=== PATIENT | female | born 1930 | race Caucasian/White ===

== ENCOUNTER → 2019-01-04 | Outpatient (CLI) | payer MEDICARE ==
[2015-12-17 09:21] VITALS: BP 154/62
[~2019-01-04] MED LIST: ALPR0.254 PO; FELO5TAB PO; HYDR-2765 PO
--- NOTE | 2019-01-04 15:07 | CARD ---
MR#: [id number] Date of Study: 01/04/2019 Ordering Physician: MAIKOL SANDERS, Referring Physician: MAIKOL SANDERS Tech: Joan Sterling RDCS APPROVED REPORT EXAM: Two-dimensional and M-mode echocardiogram with Doppler and color Doppler. Other Information Quality : Fair INDICATION Hypertension/HCVD 2D DIMENSIONS RVDd1.4 (2.9-3.5cm)Left Atrium(2D)3.7 (1.6-4.0cm) IVSd0.7 (0.7-1.1cm)Aortic Root(2D)2.6 (2.0-3.7cm) LVDd5.2 (3.9-5.9cm)LVOT Diameter2.0 (1.8-2.4cm) PWd0.7 (0.7-1.1cm)LVDs2.7 (2.5-4.0cm) FS (%) 47.2 %SV100.5 ml LVEF(%)60.0 (>50%) Aortic Valve AoV Peak Yobany.110.6cm/sAoV VTI24.1cm AO Peak GR.4.9mmHgLVOT Peak Yobany.93.8cm/s LVOT VTI 20.15cmAO Mean GR.3mmHg BOB (VMAX)2.46tw1HJQ (VTI)2.58cm2 Mitral Valve MV E Mnenopkb08.5cm/sMV DECEL [id number] MV A Enawwkto54.4cm/sMV QTQ22ya E/A Ratio0.7MVA (PHT)3.48cm2 TDI E/Lateral E'9.6E/Medial E'13.6 Tricuspid Valve TR P. Yqvahlbf056fc/sRAP DHUUAVGU9peUp TR Peak Gr.63caQqCNEU34nuAs Pulmonary Vein S1 Iczizgjk48.0cm/sD2 Cncylayd82.0cm/s LEFT VENTRICLE The left ventricle is normal size. There is normal left ventricular wall thickness. The left ventricu lar systolic function is normal. The Ejection Fraction is 55-60%. There is normal LV segmental wall m otion. Transmitral Doppler flow pattern is Grade I-abnormal relaxation pattern. RIGHT VENTRICLE The right ventricle is normal size. The right ventricular systolic function is normal. ATRIA The left atrium size is normal. The right atrium size is normal. The interatrial septum is intact wit h no evidence for an atrial septal defect or patent foramen ovale as noted on 2-D or Doppler imaging. AORTIC VALVE The aortic valve is mildly thickened but opens well. Doppler and Color Flow revealed trace to mild ao rtic regurgitation. There is no significant aortic valvular stenosis. MITRAL VALVE The mitral valve is calcified but opens well. Mitral annular calcification is mild. There is no evide nce of mitral valve prolapse. There is no mitral valve stenosis. Doppler and Color-flow revealed mild mitral regurgitation. TRICUSPID VALVE The tricuspid valve is normal in structure and function. Doppler and Color Flow revealed mild tricusp id regurgitation. There is mild pulmonary hypertension. The PA pressure was estimated at 31 mmHg. The re is no tricuspid valve stenosis. PULMONIC VALVE The pulmonic valve is not well visualized. Doppler and Color Flow revealed trace pulmonic valvular re gurgitation. There is no pulmonic valvular stenosis. GREAT VESSELS The aortic root is normal in size. The ascending aorta is normal in size. The IVC is normal in size a nd collapses >50% with inspiration. PERICARDIAL EFFUSION There is no evidence of significant pericardial effusion. Critical Notification Critical Value: No <Conclusion> The left ventricular systolic function is normal. The Ejection Fraction is 55-60%. There is normal LV segmental wall motion. Transmitral Doppler flow pattern is Grade I-abnormal relaxation pattern. Mild mitral regurgitation. Mild tricuspid regurgitation. The PA pressure was estimated at 31 mmHg. There is no evidence of significant pericardial effusion. Signed by : Maikol Sanders, Electronically Approved : 01/04/2019 15:07:22
== END | disposition home or self-care (01) ==
LOC: ECHO 12:47
PROVIDERS: ATTEND Internal Medicine Cardiovascular Disease
DX: I08.3 Combined rheumatic disorders of mitral, aortic and tricuspid valves (principal); I27.20 Pulmonary hypertension, unspecified; I10 Essential (primary) hypertension
CPT/HCPCS: 93306

== ENCOUNTER → 2019-01-05 | Outpatient (CLI) | payer MEDICARE ==
[2015-12-17 09:21] VITALS: BP 154/62
--- NOTE | 2019-01-09 10:11 | RAD ---
MR#: [id number] Date of Study: 01/05/2019 Ordering Physician: MAIKOL SANDERS, Referring Physician: MAIKOL SANDERS, Tech: Burak Sanchez MBA, RDMS, RVT, RDCS, RTR APPROVED REPORT Patient Location : OUT-PATIENT Indications Lower Extremity Edema : Bilateral Findings The right great saphenous vein measures 6.7 mm the left great saphenous vein measures 7.3 mm. The juana ateral greater saphenous veins do not show any evidence of reflux. The bilateral lesser saphenous veins do not show any evidence of reflux. Critical Notification Critical Value: No <Conclusion> Negative for reflux in the bilateral greater and lesser saphenous veins. Signed by : Carlos Caraballo, Electronically Approved : 01/09/2019 10:11:11
== END | disposition home or self-care (01) ==
LOC: US 13:03
PROVIDERS: ATTEND Internal Medicine Cardiovascular Disease
DX: R60.0 Localized edema (principal)
CPT/HCPCS: 93970

== ENCOUNTER → 2019-03-27 | Outpatient (CLI) | payer MEDICARE ==
[2015-12-17 09:21] VITALS: BP 154/62
[~2019-03-27] MED LIST changes: -FELO5TAB PO; +FELO5TAB4 PO
--- NOTE | 2019-03-27 11:21 | RAD ---
EXAM: Bilateral renal sonogram. HISTORY: Inguinal lumps. TECHNIQUE: Sonographic imaging of the inguinal regions was performed. COMPARISON: None. FINDINGS: There is an enlarged left inguinal lymph node measuring 4.8 cm in long axis. There is a 1.7 cm right inguinal lymph node with benign fatty hilum and thin cortex. There is no hernia. IMPRESSION: 1. Enlarged left middle lymph node at a site of palpable concern. This may be reactive or neoplastic. 2. Benign-appearing right middle lymph node. Electronically signed by: Kary Munoz MD (03/27/2019 11:19 AM) [place] [id number]
== END | disposition home or self-care (01) ==
LOC: US 08:45
PROVIDERS: ATTEND Family Medicine
DX: R59.0 Localized enlarged lymph nodes (principal)
CPT/HCPCS: 76882

== ENCOUNTER → 2019-05-11 | Outpatient (CLI) | payer MEDICARE ==
[2015-12-17 09:21] VITALS: BP 154/62
--- NOTE | 2019-05-11 12:57 | RAD ---
EXAM: Bilateral renal sonogram. HISTORY: Palpable lumps. Lymphadenopathy. TECHNIQUE: Sonographic imaging of the bilateral internal region was performed. COMPARISON: 03/27/2019. FINDINGS: There is a prominent right inguinal lymph node with thin cortex and fatty hilum measuring 1.8 cm in long axis. There is a large lymph node with slightly thickened cortex within the left inguinal region measuring 4.8 cm in maximum dimension. No additional suspicious sonographic lesion is seen. IMPRESSION: 1. Stable enlarged left inguinal lymph node with slightly thickened cortex measuring 4.8 cm in long axis. 2. Stable 1.8 cm benign-appearing right middle lymph node. Electronically signed by: Kary Munoz MD (05/11/2019 12:54 PM) [facility]
== END | disposition home or self-care (01) ==
LOC: US 10:53
PROVIDERS: ATTEND Family Medicine
DX: R59.0 Localized enlarged lymph nodes (principal)
CPT/HCPCS: 76882